=== PATIENT | female | born 2000 ===

== ENCOUNTER 2025-03-08 06:56 | Emergency (ER) | payer OTHER ==
[~2025-03-08] VITALS: Ht 154.9 cm; Wt 77.5 kg
[2025-03-08 06:56] VITALS: BP 130/89; PULSE 95; RESP 19; TEMP 98.6; O2SAT 95
== END 2025-03-08 07:49 | disposition left against medical advice (07) ==
LOC: ER 06:56
DX: M54.2 Cervicalgia (principal); M54.50 Low back pain, unspecified; Z53.21 Procedure and treatment not carried out due to patient leaving prior to being seen by health care provider